=== PATIENT | male | born 2000 | race Caucasian/White ===

== ENCOUNTER 2022-12-29 14:07 | Emergency (ER) | payer OTHER, SELFPAY ==
--- NOTE | ~2022-12-29 | XR_ITS ---
EXAM: XR wrist RT min 3V DATE: 12/29/2022 14:27 HISTORY: FALL WHILE SKATING,DORSAL RADIAL PAIN . COMPARISON: None available. FINDINGS: Normal mineralization. Nondisplaced, mildly comminuted intra-articular fracture of the dis myrtle right radius, with fracture lines oriented in both the coronal and sagittal planes. No lytic or b lastic lesion. Joint spaces are maintained. No erosion or periosteal change. Soft tissue swelling abo ut the wrist. IMPRESSION: Nondisplaced, mildly comminuted intra-articular fracture of the distal right radius. Reviewed, dictated and finalized at location K. IMPRESSION: Nondisplaced, mildly comminuted intra-articular fracture of the dis myrtle right radius.
[2022-12-29 14:19] VITALS: BP 149/81; PULSE 80; RESP 16; TEMP 36.3; O2SAT 99
--- NOTE | 2022-12-29 15:07 | ED.GENADULT ---
HPI - General Adult General Chief complaint: Extremity Injury, Upper Stated complaint: Right Wrist Injury Source: patient Mode of arrival: ambulatory Limitations: no limitations History of Present Illness HPI narrative: PATIENT PRESENTS FOR EVALUATION OF RIGHT WRIST PAIN. INDICATES HE WAS ICE SKATING LAST NIGHT WHEN HE FELL AND BRACED HIMSELF WITH RIGHT UPPER EXTREMITY. HE NOW REPORTS PAIN AND SWELLING IN THE RIGHT WRIST. PAIN IS RATED 2/10 SEVERITY, WITHOUT DESCRIPTIVE QUALITY. NO PARESTHESIAS. NO LOSS OF RANGE OF MOTION BUT MOVEMENT MAKES HIS PAIN WORSE. HE IS RIGHT-HAND DOMINANT. HE TRIED TAKING IBUPROFEN AND TYLENOL FOR HIS SYMPTOMS. NO ADDITIONAL COMPLAINTS OR CONCERNS. Related Data Allergies Allergy/AdvReac Type Severity Reaction Status Date / Time No Known Allergies Allergy Verified 12/29/22 14:36 Review of Systems Review of Systems: CONSTITUTIONAL: DENIES FEVER, CHILLS, OR SWEATS. EYES: DENIES VISUAL CHANGES, REDNESS, OR DISCHARGE. ENT: DENIES RHINORRHEA, CONGESTION, SORE THROAT, OR OTALGIA. CARDIOVASCULAR: DENIES CHEST PAIN, PALPITATIONS, OR EDEMA. RESPIRATORY: DENIES COUGH OR DYSPNEA. GASTROINTESTINAL: DENIES ABDOMINAL PAIN, NAUSEA, VOMITING, OR DIARRHEA. GENITOURINARY: DENIES DYSURIA OR HEMATURIA. SKIN: DENIES RASH OR ITCHING. MUSCULOSKELETAL: REPORTS PAIN AND SWELLING IN THE RIGHT WRIST. NEUROLOGIC: DENIES HEADACHE, NUMBNESS, DIZZINESS, OR WEAKNESS. PSYCHIATRIC: DENIES ANXIETY OR DEPRESSION. FOR[facility]LY [facility] Past Medical History Medical History (Updated 12/29/22 @ 15:18 by Peng Wilder, [facility], ) No pertinent past medical history Surgical History Surgical History No pertinent past surgical history Family History Family History Mother Family history non-contributory Social History Social History Smoking status: Never smoker Substance use: current Substance use type: marijuana Living arrangements: with family Gender identity (if verbalized by the patient): Male Spiritual care concerns: No Exam Narrative: GENERAL: WELL-APPEARING, WELL-NOURISHED, AND IN NO ACUTE DISTRESS. HEAD: NORMOCEPHALIC, ATRAUMATIC. EYES: PERRLA AND EOMI. ENT: NARES CLEAR, NO RHINORRHEA OR EPISTAXIS. MUCOUS MEMBRANES MOIST. OROPHARYNX WITHOUT TONSILLAR HYPERTROPHY EXUDATE OR OTHER LESIONS. BILATERAL TMS PEARLY JJ NONBULGING NECK: SUPPLE. NO ADENOPATHY OR MASSES. NO CAROTID BRUITS OR JVD CHEST: CLEAR TO AUSCULTATION. NO RESPIRATORY DISTRESS. NO WHEEZES RALES OR RHONCHI HEART: REGULAR RATE AND RHYTHM. NO MURMUR HEARD. NORMAL PERIPHERAL PULSES. ABDOMEN: SOFT, NONTENDER, NONDISTENDED, NORMAL ACTIVE BOWEL SOUNDS. EXTREMITIES: THERE IS TRACE SWELLING NOTED IN RIGHT WRIST. NO CREPITUS OR DEFORMITY. MILD TENDERNESS OVER RIGHT DISTAL RADIUS. 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 FULL ROM OF RIGHT WRIST INTACT SKIN: WARM, DRY, NO RASH. NEURO: NO FOCAL DEFICITS. ALERT AND ORIENTED X3. PSYCH: NORMAL MOOD AND AFFECT. Course Course Emergency Course: THIS IS A 22-YEAR-OLD MALE WHO PRESENTED FOR EVALUATION OF RIGHT WRIST PAIN FOLLOWING A FALL YESTERDAY. HE HAS A DISTAL RADIUS FRACTURE ON EXAM. HE WAS PLACED IN SUGAR-TONG SPLINT PROVIDED WITH A SLING. POST SPLINT NEUROVASCULAR CHECK INTACT. FOLLOW UP WITH ORTHO. SADIQ WITH [facility]. GO TO THE ER FOR INTRACTABLE PAIN OR PARESTHESIAS. PATIENT IN AGREEMENT WITH PLAN OF CARE. Level of Care: Express Care Visit Vital Signs Vital signs: Vital Signs Temperature 36.3 C L 12/29/22 14:19 Pulse Rate 80 12/29/22 14:19 Respiratory Rate 16 12/29/22 14:19 Blood Pressure 149/81 H 12/29/22 14:19 Pulse Oximetry 99 12/29/22 14:19 Oxygen Delivery Room Air 12/29/22 14:19 Temperature 36.3 C L 12/29/22 14:19 Pulse Rate 80 12/29/22 14:19 Respiratory Rate 16 12/29/22 14:19 Blood Pressure
== END 2022-12-29 15:25 | disposition home or self-care (01) ==
PROVIDERS: Emergency Provider Nurse Practitioner
DX: S52.501A Unspecified fracture of the lower end of right radius, initial encounter for closed fracture (principal); V00.211A Fall from ice-skates, initial encounter; Y93.21 Activity, ice skating; F12.90 Cannabis use, unspecified, uncomplicated
CPT/HCPCS: 29125; 73110; 99214; A4565; G0463

== ENCOUNTER 2024-06-09 09:32 | Emergency (ER) | payer OTHER, SELFPAY ==
[2024-06-09 09:39] VITALS: BP 148/87; PULSE 85; RESP 18; TEMP 36.6; O2SAT 100
--- NOTE | 2024-06-09 10:00 | ED.EAR ---
HPI - Ear Problem General Chief complaint: Ear Stated complaint: Left Ear Pain Time Seen by Provider: 06/09/24 10:21 Source: patient and RN notes reviewed Mode of arrival: ambulatory Limitations: no limitations History of Present Illness HPI Narrative: 24-year-old male presents with concern for left ear pain for 2 days. He reports he he has been taking Sudafed. He denies nasal congestion, rhinorrhea, sore throat, fever, drainage from the ear. MD Complaint: ear pain Related Data Allergies Allergy/AdvReac Type Severity Reaction Status Date / Time No Known Allergies Allergy Verified 12/29/22 14:36 Review of Systems Review of Systems: CONSTITUTIONAL: Denies malaise, chills, sweats, or fever. EYES: Denies visual changes, redness, or discharge. ENT: Denies rhinorrhea, congestion, sinus pain, and sore throat. Reports left ear pain CARDIOVASCULAR: Denies chest pain, palpitations, or edema. RESPIRATORY: Denies cough. Denies dyspnea. GASTROINTESTINAL: Denies abdominal pain, nausea, vomiting, diarrhea SKIN: Denies rash or itching. MUSCULOSKELETAL: Denies myalgia. NEUROLOGIC: Denies headache. All systems reviewed & are unremarkable except as noted in HPI and below PMFSH Past Medical History Medical History (Updated 06/09/24 @ 10:30 by Violeta De Jesus NP) No pertinent past medical history Surgical History Surgical History No pertinent past surgical history Family History Family History Mother Family history non-contributory Social History Social History Smoking status: Never smoker Substance use: current Substance use type: marijuana Living arrangements: with family Gender identity (if verbalized by the patient): Male Spiritual care concerns: No Comments At time of signature, agree with nursing past medical, surgical, social and family history. There is no relevant family history pertinent to the presenting complaint Exam Narrative: GENERAL: Well-appearing, well-nourished, and in no acute distress. HEAD: Normocephalic EYES: PERRLA, conjunctivae clear ENT: Nares clear. Mucous membranes moist. TM pearly corbett with dull light reflex on the left, sharp on the right; no tragal tenderness. Oropharynx not erythematous without lesions. Tonsils not enlarged and without exudate, no drooling, no hoarseness, no trismus, uvula midline. NECK: Supple. No lymphadenopathy CHEST: Clear to auscultation, breath sounds equal. No wheezing, rhonchi, rales, or stridor. No respiratory distress, speaks in full sentences. HEART: Regular rate and rhythm. No murmur heard. SKIN: Warm, dry, no rash. NEURO: Alert and oriented x3. PSYCH: Normal mood and affect Course Course Emergency Course: Patient is aware of diagnosis, understands and agrees to treatment plan. Anticipatory guidance given. Patient agrees to follow-up as directed and is aware of reasons to seek care at the emergency department. Portions of this record may have been created with voice recognition software Level of Care: [facility] Visit Vital Signs Vital signs: Vital Signs Temperature 97.8 F 06/09/24 09:39 Pulse Rate 85 06/09/24 09:39 Respiratory Rate 18 06/09/24 09:39 Blood Pressure 148/87 H 06/09/24 09:39 Pulse Oximetry 100 06/09/24 09:39 Oxygen Delivery Room Air 06/09/24 09:39 Temperature 97.8 F 06/09/24 09:39 Pulse Rate 85 06/09/24 09:39 Respiratory Rate 18 06/09/24 09:39 Blood Pressure 148/87 H 06/09/24 09:39 Pulse Oximetry 100 06/09/24 09:39 Oxygen Delivery Room Air 06/09/24 09:39 Reviewed. Medical Decision Making MDM Narrative Medical decision making narrative: I evaluated this in the [facility]. History is obtained from patient who is an independent historian and physical exam was performed.? Available medical
== END 2024-06-09 10:34 | disposition home or self-care (01) ==
PROVIDERS: Emergency Provider Nurse Practitioner
DX: H65.92 Unspecified nonsuppurative otitis media, left ear (principal)
CPT/HCPCS: 99211; G0463